=== PATIENT | male | born 1995 | race Hispanic/Latino ===

== ENCOUNTER 2021-10-18 20:45 | Emergency (ER) | payer MEDICAID, SELFPAY ==
[2021-10-18] MEDS ORDERED: Proparacaine 0.5% Opth 15 ML BOT ONE (22:17)
[2021-10-18] MEDS ORDERED: Fluorescein Opthalmic Strip ONE (22:17)
== END 2021-10-18 22:53 | disposition home or self-care (01) ==
LOC: ERS 20:45
DX: S05.02XA Injury of conjunctiva and corneal abrasion without foreign body, left eye, initial encounter (principal); H01.004 Unspecified blepharitis left upper eyelid; X50.0XXA Overexertion from strenuous movement or load, initial encounter
CPT/HCPCS: 99283